=== PATIENT | female | born 2005 | race Two or more races ===

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

== ENCOUNTER 2025-02-22 22:55 | Emergency (ER) | payer BC, MEDICAID ==
[~2025-02-22] VITALS: Ht 157.5 cm; Wt 70.9 kg
[2025-02-22] MEDS: HYDROcodone-ACET 5/325MG TAB PO ONE (23:19)
[2025-02-22] MEDS: DexAMETHasone SOD PHOS 10MG/1ML VIAL INJ IM ONE (23:20)
[2025-02-22] MEDS: KETOROLAC TROMETH 60MG/2ML VIAL IM ONE (23:20)
[2025-02-22 23:43] VITALS: BP 140/95; PULSE 116; RESP 20; TEMP 100; O2SAT 98
[2025-02-23] MEDS ORDERED: CEFD300C2 PO (00:27)
[2025-02-23] MEDS ORDERED: METH4PAK PO (00:27)
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
== END 2025-02-23 01:08 | disposition home or self-care (01) ==
LOC: EEVIPCON 23:01 → ER 23:01
DX: H60.313 Diffuse otitis externa, bilateral (principal)
CPT/HCPCS: 96372; 99284; J1100; J1885